=== PATIENT | female | born 1965 | race Caucasian/White ===

== ENCOUNTER 2017-11-30 19:41 | Emergency (ER) | payer BC, OTHER ==
[2017-11-30 20:23] LABS: Hematocrit 41 % (35-47); Hemoglobin 14.5 g/dl (12.0-16.0); Mean Corpuscular HGB Conc 35 g/dl (31-36); Mean Corpuscular Hemoglobin 36 pg (27-31); Mean Corpuscular Volume 101 fL (80-97); Mean Platelet Volume 6.9 um3 (7.4-10.4); Platelet Count 153 10^3/ul (150-450); Red Blood Count 4.09 10^6/ul (4.0-5.4); Red Cell Distribution Width 13 % (10.5-15); White Blood Count 8.2 10^3/ul (3.5-10.8)
[2017-11-30 20:43] LABS: EGFR Non-African American 66.9 (>60)
--- NOTE | 2017-11-30 20:48 | RAD ---
INDICATION: Shortness of breath. COMPARISON: None. TECHNIQUE: Single AP portable view of the chest was obtained. FINDINGS: Image quality is compromised due to the relative inferiority of a portable chest x-ray. The heart and mediastinum exhibit normal size and contour. The lungs are grossly clear. There is no evidence of a large pleural effusion. Visualized bones are normal for the patient's age. IMPRESSION: No radiographic evidence for acute cardiopulmonary abnormality on this portable chest x-ray.
[2017-11-30 20:49] LABS: ABS Basophils 0.1 10^3/ul (0-0.2); ABS Eosinophils 0.1 10^3/ul (0-0.6); ABS Lymphocytes 4.1 10^3/ul (1.0-4.8); ABS Monocytes 0.6 10^3/ul (0-0.8); ABS Neutrophils 3.3 10^3/ul (1.5-7.7); ABS Nucleated RBC 0 10^3/ul; Eosinophil % 1.1 % (0-6); Lymphocyte % 50.5 % (25-47); Nucleated Red Blood Cells % 0
--- NOTE | 2017-11-30 21:43 | ED ---
Skyler Harp Stephanie, scribed for Geoff Phoenix MD on 11/30/17 at 2010 . HPI Chest Pain - HPI Summary HPI Summary: The pt os a 52 y/o F presenting to the ED with c/o intermittent CP that began 2 years ago. The pt states she was at the [facility] with elevated BP and L sided CP that is described as a throbbing pain. Symptoms include nausea and lightheadedness. She states her pain radiates into her L shoulder and L UE. She denies LOC. Pt was given 324mg ASA and four doses of Nitro SL. - History of Current Complaint Chief Complaint: EDChestPainROMI Time Seen by Provider: 11/30/17 20:00 Hx Obtained From: Patient Onset/Duration: Started Hours Ago, Still Present Timing: Intermittent Current Severity: Moderate Pain Intensity: 5 Pain Scale Used: 0-10 Numeric Chest Pain Location: Left Anterior Chest Pain Radiates: Yes Chest Pain Radiates To:: Shoulder - L, Arm - L Character: Other: - throbbing Aggravating Factor(s): Nothing Alleviating Factor(s): Nothing Associated Signs and Symptoms: Positive: Lightheadedness, Nausea - Allergy/Home Medications Allergies/Adverse Reactions: Allergies Allergy/AdvReac Type Severity Reaction Status Date / Time erythromycin base Allergy Unknown Verified 11/30/17 20:30 Reaction Details lisinopril Allergy Difficulty Verified 11/30/17 20:43 Breathing Home Medications: Home Medications Metoprolol Tartrate [Metoprolol Tartrate] 100 mg PO DAILY 11/30/17 [History Confirmed 11/30/17] Nortriptyline HCl 50 mg PO BEDTIME 11/30/17 [History Confirmed 11/30/17] PMH/Surg Hx/FS Hx/Imm Hx Sensory History: Denies: Hx Legally Blind EENT History: Denies: Hx Deafness - Surgical History Surgery Procedure, Year, and Place: NONE Infectious Disease History: No Infectious Disease History: Denies: Traveled Outside the [place] in Last 30 Days - Family History Known Family History: Negative: Renal Disease - Social History Occupation: Unemployed Lives: With Family Alcohol Use: Occasionally Hx Substance Use: No Substance Use Type: Reports: None Hx Tobacco Use: Yes Smoking Status (MU): Light Every Day Tobacco Smoker Have You Smoked in the Last Year: Yes Review of Systems Negative: Fever Positive: Chest Pain Positive: Nausea Neurological: Negative - LOC, Other - lightheadedness All Other Systems Reviewed And Are Negative: Yes Physical Exam - Summary Physical Exam Summary: VITAL SIGNS: Reviewed. GENERAL: Patient is a well-developed and nourished FEMALE who is lying comfortable in the stretcher. Patient is not in any acute respiratory distress. HEAD AND FACE: No signs of trauma. No ecchymosis, hematomas or skull depressions. No sinus tenderness. EYES: PERRLA, EOMI x 2, No injected conjunctiva, no nystagmus. EARS: Hearing grossly intact. Ear canals and tympanic membranes are within normal limits. MOUTH: Oropharynx within normal limits. NECK: Supple, trachea is midline, no adenopathy, no JVD, no carotid bruit, no c- spine tenderness, neck with full ROM. CHEST: Symmetric, no tenderness at palpation LUNGS: Clear to auscultation bilaterally. No wheezing or crackles. CVS: Regular rate and rhythm, S1 and S2 present, no murmurs or gallops appreciated. ABDOMEN: Soft, non-tender. No signs of distention. No rebound no guarding, and no masses palpated. Bowel sounds are normal. EXTREMITIES: FROM in all major joints, no edema, no cyanosis or clubbing. NEURO: Alert and oriented x 3. No acute neurological deficits. Speech is normal and follows commands. SKIN: Dry and warm Triage Information Reviewed: Yes Vital Signs On Initial Exam: Initial Vitals Pulse Resp Pulse Ox 95 19 94 11/30/17 19:48 11/30/17 19:48 11/30/17 19:48 Vital Signs Reviewed: Yes Diagnostics - Vital Signs Vital Signs Temp Pulse Resp BP Pulse Ox 11/30/17 20:00 90 21 93 11/30/17 19:50 98.9 F 95 18 139/91 94 11/30/17 19:49 94 20 139/91 95 11/30/17 19:48 95 19 94 - Laboratory Lab Results: Lab Results 11/30/17 Range/Units 20:15 WBC 8.2 (3.5-10.8) 10^3/ul RBC 4.09 (4.0-5.4) 10^6/ul Hgb 14.5 (12.0-16.0) g/dl Hct 41 (35-47) % MCV 101 H (80-97) fL MCH 36 H (27-31) pg MCHC 35 (31-36) g/dl RDW 13 (10.5-15) % Plt Count 153 (150-450) 10^3/ul MPV 6.9 L (7.4-10.4) um3 Neut % (Auto) Pending Lymph % (Auto) Pending [place] % (Auto) Pending Eos % (Auto) Pending Baso % (Auto) Pending Absolute Neuts (auto) Pending Absolute Lymphs (auto) Pending Absolute Monos (auto) Pending Absolute Eos (auto) Pending Absolute Basos (auto) Pending Absolute Nucleated RBC Pending Nucleated RBC % Pending Result Diagrams: 11/30/17 20:15 11/30/17 20:15 Lab Statement: Any lab studies that have been ordered have been reviewed, and results considered in the medical decision making process. - Radiology CXR Xray Interpretation: No Acute Changes Radiology Interpretation Completed By: Radiologist - No radiographic evidence for acute cardiopulmonary abnormality on this portable chest x-ray. ED physician has reviewed this report. - EKG 20:07 Cardiac Rate: NL EKG Rhythm: Sinus Rhythm - [address] Segment: Normal Ectopy: None EKG Interpretation: No ST elevations Re-Evaluation - Re-Evaluation First Eval Re-Evaluation Time: 21:29 Change: Improved - ED physician discussed plan of discharge with the pt and the pt understands and agrees with the plan of discharge. Chest Pain Course/Dx - Course Assessment/Plan: This patient is a 52-year-old female with past medical history significant for hypertension presents to the emergency department with the chief complaint of chest pain and increased blood pressure. Patient reports that she went to the primary care physician Dr. Chopra for a follow-up on her chronic hypertension. She was at her office and she started having some chest pain and increased blood pressure therefore she was sent to the emergency room for further workup and management. She reports that she has intermittent chest pain but none at this time. EKG shows a normal sinus rhythm with no ST elevations. Blood work without any significant abnormality. The first troponin is 0.00. Chest x-ray shows no acute pathology. Patient requests to be discharged and she doesnt want a week for the second troponin. Patient reports that her symptoms have resolved and have not come back. The patient continues to be symptomatic for approximately 2 hours. Patient requests to get a referral for cardiology. The blood pressure right now is 111/89. The patient is asymptomatic she understands that we havent done the second troponin however the patient was to be discharged home. Patient was advised to return to the emergency department if she develops any other chest pain, shortness of breath, palpitations, dizziness or feeling like she is going to pass out. The patient understands and agrees. Patient is hemodynamically stable. - Chest Pain Differential Diagnosis/HQI/PQRI: Acute NC, ACS, Angina, CHF, Chest Wall, GI Disease, Lower Respiratory Infection - Diagnoses Provider Diagnoses: Atypical chest pain, Uncontrolled hypertension Discharge - Sign-Out/Discharge Documenting (check all that apply): Discharge/Admit/Transfer - Discharge - Discharge Plan Condition: Stable Disposition: HOME Patient Education Materials: Chest Pain (ED), Chronic Hypertension (ED) Referrals: Pilar Chopra MD [Primary Care Provider] - 3 Days Angela Siddiqi MD [Medical Doctor] - 4 Days Additional Instructions: Return to the ED for new or worsening symptoms. - Billing Disposition and Condition Condition: STABLE Disposition: HOME The documentation as recorded by the Skyler walker Stephanie accurately reflects the service I personally performed and the decisions made by , Geoff Phoenix MD.
[2017-11-30 22:03] VITALS: BP 129/93
== END 2017-11-30 22:14 | disposition home or self-care (01) ==
LOC: ED 19:41
DX: R07.89 Other chest pain (principal); I10 Essential (primary) hypertension; F17.200 Nicotine dependence, unspecified, uncomplicated; Z88.3 Allergy status to other anti-infective agents; Z88.8 Allergy status to other drugs, medicaments and biological substances
CPT/HCPCS: 36415; 71045; 80053; 82550; 82553; 83605; 83735; 83880; 84443; 84484; 85025; 85730; 93005; 99284

== ENCOUNTER 2019-02-07 11:40 | Observation (INO) | payer OTHER ==
[2019-02-07] MEDS ORDERED: Metoprolol Tartrate IV* 1 MG/ML 5 ML VIAL IV ONE ×2 (11:58→13:12)
[2019-02-07] MEDS ORDERED: Aspirin 81 mg CHEW TAB* 81 MG TAB.CHEW PO ONE (12:02)
[2019-02-07] MEDS ORDERED: Nitroglycerin TAB 0.4 MG* 0.4 MG TAB SL ONE (12:02)
--- NOTE | 2019-02-07 12:11 | ED ---
Hypertension - HPI Summary HPI Summary: The patient is a 53 y/o F presenting to [facility] from her PCP with a chief complaint of concern for HTN last night persisting into this morning. She reports that her BP was elevated last night with systolic of 198 mmHg, so she took double the dosage of her Losartan, which usually controls her HTN. The medication did not help, and her BP was still elevated this morning in her PCP' s office. She additionally reports that she has been experiencing HEADLEY, blurred vision, left-sided chest pressure, and difficulty walking as there is a sensation of fatigue in the left leg. She denies any fever, chills, erythema of eyes, sore throat, SOB, cough, abdominal pain, N/V, dysuria, hematuria, myalgia , edema, rash, or dizziness. She also denies any changes in medications, drinking more coffee than usual, increased stress, or drug use. She came to [facility] 3-4 months with a similar presentation, but she did not have HEADLEY or visual changes at that time. Hx of angina, HTN. No surgical hx. FHx HTN. Light every day cigarette smoker, weekly EtOH, no substance use. - History of Current Complaint Chief Complaint: EDHypertension Stated Complaint: HIGH BP, BLURRY VISION,HEADACHE PER PT Time Seen by Provider: 02/07/19 11:57 Hx Obtained From: Patient Onset/Duration: Started Hours Ago - last night, Still Present Reported Blood Pressure Prior To Arrival: 198 mmHg (systolic) Aggravating Factor(s): Nothing Alleviating Factor(s): Nothing Associated Signs & Symptoms: Other: - POSITIVE: HEADLEY, blurred vision, left-sided chest pressure, difficulty with ambulation; NEGATIVE: fever, chills, erythema of eyes, sore throat, SOB, cough, abdominal pain, N/V, dysuria, hematuria, myalgia, edema, rash, dizziness - Allergies/Home Medications Allergies/Adverse Reactions: Allergies Allergy/AdvReac Type Severity Reaction Status Date / Time erythromycin base Allergy Intermediate Hives Verified 02/07/19 11:56 lisinopril Allergy Intermediate Difficulty Verified 02/07/19 11:56 Breathing naproxen Allergy Intermediate Rash Verified 02/07/19 11:56 PMH/Surg Hx/FS Hx/Imm Hx Endocrine/Hematology History: Denies: Hx Diabetes Cardiovascular History: Reports: Hx Angina, Hx Hypertension Respiratory History: Denies: Hx Asthma, Hx Chronic Obstructive Pulmonary Disease (COPD) Sensory History: Denies: Hx Legally Blind, Hx Deafness Opthamlomology History: Denies: Hx Legally Blind - Surgical History Surgical History: None Surgery Procedure, Year, and Place: NONE Infectious Disease History: No Infectious Disease History: Denies: Traveled Outside the [place] in Last 30 Days - Family History Known Family History: Positive: Hypertension Negative: Diabetes, Renal Disease - Social History Alcohol Use: Weekly Alcohol Amount: 2 Hx Substance Use: No Substance Use Type: Reports: None Hx Tobacco Use: Yes Smoking Status (MU): Light Every Day Tobacco Smoker Type: Cigarettes Have You Smoked in the Last Year: Yes Review of Systems Negative: Fever, Chills Positive: Blurred Vision. Negative: Erythema Negative: Sore Throat Positive: Chest Pain - pressure, left-sided, intermittent, Other - elevated BP Negative: Shortness Of Breath, Cough Negative: Abdominal Pain, Vomiting, Nausea Negative: dysuria, hematuria Positive: Other - difficulty with ambulation secondary to fatigue of left leg. Negative: Myalgia, Edema Negative: Rash Neurological: Other - NEGATIVE: dizziness Positive: Headache All Other Systems Reviewed And Are Negative: Yes Physical Exam - Summary Physical Exam Summary: Constitutional: Well-developed, Well-nourished, Alert. (-) Distressed Skin: Warm, Dry HENT: Normocephalic; Atraumatic Eyes: Conjunctiva normal Neck: Musculoskeletal ROM normal neck. (-) JVD, (-) Stridor, (-) Tracheal deviation Cardio: Rhythm regular, rate normal, Heart sounds normal; Intact distal pulses; The pedal pulses are 2+ and symmetric. Radial pulses are 2+ and symmetric. (-) Murmur Pulmonary/Chest wall: Effort normal. (-) Respiratory distress, (-) Wheezes, (-) Rales Abd: Soft, (-) tenderness, (-) Distension, (-) Guarding, (-) Rebound Musculoskeletal: (-) Edema Lymph: (-) Cervical adenopathy Neuro: Alert, Oriented x3, Strength normal, Cranial nerves II-XII are grossly intact. (-) Dysmetria, (-) Nystagmus, (-) Ataxia by finger to nose testing, (-) Sensory deficit. GCS: 15. Psych: Mood and affect Normal Triage Information Reviewed: Yes Vital Signs On Initial Exam: Initial Vitals Temp Pulse Resp BP Pulse Ox 98.5 F 96 18 205/134 98 02/07/19 11:41 02/07/19 11:41 02/07/19 11:41 02/07/19 11:41 02/07/19 11:41 Vital Signs Reviewed: Yes - Karena Coma Scale Best Eye Response: 4 - Spontaneous Best Motor Response: 6 - Obeys Commands Best Verbal Response: 5 - Oriented Coma Scale Total: 15 Diagnostics - Vital Signs Vital Signs Temp Pulse Resp BP Pulse Ox 02/07/19 11:41 98.5 F 96 18 205/134 98 - Laboratory Result Diagrams: 02/08/19 05:37 02/08/19 05:37 Lab Statement: Any lab studies that have been ordered have been reviewed, and results considered in the medical decision making process. - Radiology CXR Radiology Interpretation Completed By: Radiologist Summary of Radiographic Findings: Impression: No active cardiopulmonary disease. ED physician has reviewed this report. Brain MRI Radiology Interpretation Completed By: Radiologist Summary of Radiographic Findings: Impression: 1. There is a nonenhancing lesion of the left caudate head. There are features suggestive of a chronic infarct, though the imaging appearance is somewhat indeterminate. There is no restricted diffusion to suggest acute infarct. 2. Recommend follow-up with six-month follow -up contrast enhanced MRI of the brain to establish stability of this probably static finding. 3. Mild sinus mucosal inflammatory disease, with an air-fluid level in the left maxillary sinus. In the correct clinical setting, this may represent acute sinusitis. ED physician has reviewed this report. - CT Brain CT CT Interpretation Completed By: Radiologist Summary of CT Findings: Impression: Focal hypoattenuation of the left caudate head. This may represent a subacute nonhemorrhagic infarct, though the imaging appearance is indeterminate. Recommend sideration further evaluation with contrast enhanced MRI of the head. ED physician has reviewed this report. - EKG 1203 Cardiac Rate: NL - 90 bpm EKG Rhythm: Sinus Rhythm Summary of EKG Findings: NSR at 90 bpm. No STEMI. Re-Evaluation - Re-Evaluation First Eval Re-Evaluation Time: 14:00 Change: Improved Comment: Patient is feeling slightly improved but BP is still 160s systolic. We also discussed admission. Hypertension Course/Dx - Course Course Of Treatment: Patient is a 53 y/o F with cc of continued HTN with SBP near 200 mmHg since last night despite taking Losartan, which usually controls her BP. Associated symptoms include HEADLEY, blurred vision, left-sided CP, and difficulty walking with fatigue in left leg. Upon physical exam, the patient exhibits no acute abnormalities; neuro exam is negative for deficit. In the ED course, the patient was administered NTG, ASA, and Metoprolol. As BP continued to stay elevated the patient was also given Losartan. Blood work reveals MCV of 101, MCH of 35, MPV of 6.6, BUN/Creatinine of 21.0, AST of 41, and ALT of 73. EKG at 1203 reveals NSR at 90 bpm. Chest x-ray reveals no acute cardiopulmonary disease. Brain CT Impression: Focal hypoattenuation of the left caudate head. This may represent a subacute nonhemorrhagic infarct, though the imaging appearance is indeterminate. Recommend sideration further evaluation with contrast enhanced MRI of the head. Brain MRI Impression: 1. There is a nonenhancing lesion of the left caudate head. There are features suggestive of a chronic infarct, though the imaging appearance is somewhat indeterminate. There is no restricted diffusion to suggest acute infarct. 2. Recommend follow- up with six-month follow-up contrast enhanced MRI of the brain to establish stability of this probably static finding. 3. Mild sinus mucosal inflammatory disease, with an air-fluid level in the left maxillary sinus. In the correct clinical setting, this may represent acute sinusitis. At 1404, Dr. Lang, hospitalist, accepts the patient for admission with dx of hypertensive emergency and brain lesion. Patient agrees and understands this plan. CCT of 45 minutes. - Diagnoses Provider Diagnoses: Hypertensive emergency, Brain lesion - Physician Notifications Discussed Care Of Patient With: Criss Lang - hospitalist Time Discussed With Above Provider: 14:04 Instructed by Provider To: Admit As Inpatient - I spoke with Dr. Lang concerning the patient's case, and she accepts the patient for admission. - Critical Care Time Critical Care Time: 30-74 min - 45 minutes Discharge - Sign-Out/Discharge Documenting (check all that apply): Patient Departure - Patient is accepted for admission by Dr. Lang. Patient Received Moderate/Deep Sedation with Procedure: No - Discharge Plan Condition: Stable Disposition: ADMITTED TO [facility] - Billing Disposition and Condition Condition: STABLE Disposition: Admitted to [facility] - Attestation Statements Document Initiated by Scribe: Yes Documenting Scribe: Jenn Irvin Provider For Whom Stormyibcecilio is Documenting (Include Credential): Dr. Morales Toledo MD Scribe Attestation: I, Jenn Irvin scribed for Dr. Morales Toledo MD on 02/26/19 at 0817. Scribe Documentation Reviewed: Yes Provider Attestation: The documentation as recorded by the Jenn walker accurately reflects the service I personally performed and the decisions made by me, Dr. Morales Toledo MD Status of Scribe Document: Viewed
[2019-02-07 12:15] LABS: Hematocrit 42 % (35-47); Hemoglobin 14.5 g/dL (12.0-16.0); Mean Corpuscular HGB Conc 35 g/dL (31-36); Mean Corpuscular Hemoglobin 35 pg (27-31); Mean Corpuscular Volume 101 fL (80-97); Mean Platelet Volume 6.6 fL (7.4-10.4); Platelet Count 174 10^3/uL (150-450); Red Blood Count 4.14 10^6 /uL (3.70-4.87); Red Cell Distribution Width 13 % (10-15); White Blood Count 8.4 10^3/uL (3.5-10.8)
[2019-02-07 12:27] LABS: Albumin 4.7 g/dL (3.2-5.2); Calcium 9.9 mg/dL (8.6-10.3); Potassium 4.1 mmol/L (3.5-5.0); Total Bilirubin 0.7 mg/dL (0.2-1.0)
[2019-02-07 12:33] LABS: Albumin/Globulin Ratio 1.5 (1-3); EGFR African American 89.8 (>60); EGFR Non-African American 74.3 (>60); Globulin 3.1 g/dL (2-4); Total Protein 7.8 g/dL (6.4-8.9)
[2019-02-07 13:05] LABS: ABS Basophils 0.1 10^3/ul (0-0.2); ABS Eosinophils 0.1 10^3/ul (0-0.6); ABS Monocytes 0.3 10^3/ul (0-0.8); Eosinophil % 1.2 %; Lymphocyte % 47.6 %
[2019-02-07] MEDS ORDERED: Labetalol IV* 200 MG in NS 0.9% 250 ML* 160 ML IV ONE (13:12)
[2019-02-07] MEDS ORDERED: Losartan TAB* 25 MG PO ONE (14:06)
[2019-02-07] MEDS ORDERED: Metoprolol Tartrate TAB* 25 MG PO ONE (14:06)
[2019-02-07] MEDS ORDERED: Metoprolol Tartrate TAB* 50 mg PO ONE (14:09)
[2019-02-07] MEDS ORDERED: hydrALAZINE IV* 20 MG/ML VIAL IV SLOW PU PRN (15:45)
[2019-02-07] MEDS ORDERED: Gadoteridol* (CONTRAST) 279.3 MG/ML 10 ML IV ONE (15:59)
[2019-02-07] MEDS ORDERED: Enoxaparin(*) 40 MG/0.4 ML SYR SUBCUT SCH (16:00)
--- NOTE | 2019-02-07 17:09 | HP ---
CC: Dr. Chopra * HISTORY AND PHYSICAL: DATE OF ADMISSION: 02/07/19 PROVIDER: Leslie Alaniz NP PRIMARY CARE PROVIDER: Dr. Chopra. ATTENDING PHYSICIAN WHILE IN THE HOSPITAL: Dr. Criss Lang * (dictated by Leslie Alaniz NP). CHIEF COMPLAINT: Hypertension. HISTORY OF PRESENT ILLNESS: Ms. Putnam is a 53-year-old female with a past medical history significant for hypertension, who was seen at her primary care provider's office today for elevated blood pressure and was found to have a blood pressure of 200/130 and was sent to the emergency room for further evaluation. The patient reports that she has had increased blood pressure above her baseline for the past 2 weeks. She reports that her blood pressure has been running in the 170s to 190s and today it was running in the 200s. Due to those findings, she initially went to her primary care provider for further evaluation. The patient does report that she took a double dose of losartan, a total of 100 mg last p.m. and 200 mg of metoprolol last p.m. with no improvement of her blood pressure. The patient does report that she took metoprolol 100 mg this morning and losartan 50 mg this morning. She also complains of headache and blurred vision x2 weeks. She reports heaviness in her leg with ambulation that started approximately 2 years ago, worse over the past 2 months and increased leg heaviness over the past 2 weeks to the point she does report that she has to stop when ambulating due to the heaviness in the left leg. She also does report increased sweating and tingling to her right hand. She complains of left-sided chest pain that is worse with movement of her left arm and deep breath. Nothing makes it better. She denies any radiation to the jaw, neck or arm. She denies any edema. Denies any cough, hemoptysis, or shortness of breath. No nausea or vomiting. She does report loose stools times several years that has been chronic for her. Denies any abdominal pain, hematuria, or dysuria. Denies any dysphagia. She does report left leg becomes weak with ambulation and right hand numbness. She does report blurred vision, worse in the left eye. She denies any joint or muscle aches. No rashes or lesions. She does report she did have 2 sores on her lower chin that have since resolved. Denies any psychosis or anxiety. Due to persistent hypertension, we were asked to see and evaluate her for admission. PAST MEDICAL HISTORY: Significant for hypertension, arachnoid cyst. PAST SURGICAL HISTORY: 1. x2. 2. Back surgery. 3. Hernia repair. 4. Hysterectomy, total. 5. Tonsillectomy. 6. Lymph node removed from her neck. 7. Appendectomy. HOME MEDICATIONS: Include: 1. Nortriptyline 50 mg p.o. daily. 2. Multivitamin 1 tab p.o. daily. 3. Metoprolol 100 mg p.o. b.i.d. 4. Losartan 50 mg p.o. b.i.d. 5. Tylenol 500 mg q.6 hours as needed for pain. ALLERGIES: To ERYTHROMYCIN, LISINOPRIL, and NAPROXEN. FAMILY HISTORY: Mother with a history of stroke and hypertension. Father with history of hypertension and cardiac stent. Sisters with hypertension. No reported history of diabetes. Mother with breast cancer and currently receiving chemo. Grandfather with unknown type of cancer. SOCIAL HISTORY: The patient smokes 3 quarters of pack per day since the age of 14. She does report 2 beers; she drinks 6 to 7 days a week daily. Denies any illicit drug use. 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 She is . Surrogate decision maker in the event she is unable to make her own decisions is her . She is a full code. REVIEW OF SYSTEMS: An 11-point review of systems was completed and all pertinent positives were mentioned in the HPI, otherwise were negative. PHYSICAL EXAMINATION GENERAL: At this time, Ms. Putnam is alert and oriented, resting on the stretcher in the emergency room. She is in no acute distress. VITAL SIGNS: Blood pressure 167/95, heart rate is 74, respirations are 17, O2 saturation 98%, temperature was 98.5. HEENT: Head is atraumatic, normocephalic. Eyes: EOMs are intact. Sclerae anicteric and not pale. Oral mucosa appeared to be moist. NECK: Supple. LUNGS: Clear to auscultation bilaterally. No wheezes, rales, or rhonchi. CARDIAC: S1, S2. Regular rate and rhythm. No murmurs, rubs, or gallops. ABDOMEN: Soft and nontender. Bowel sounds are present x4. EXTREMITIES: She is able to move all 4 extremities. There is no clubbing or cyanosis. There is no edema. NEUROLOGIC: She is awake, alert, oriented x3. Thought process is intact. Handgrips are equal. There is no pronator drift. There is no leg weakness, no leg drop. Push-pull is intact. Sensation is intact to all 4 extremities. Tongue is midline. Speech is clear. Lqrezw-sj-zime is intact. There are no gross focal deficits noted. SKIN: Intact. DIAGNOSTIC STUDIES/LAB DATA: WBCs are 8.4, RBCs 4.14, hemoglobin 14.5, hematocrit is 42, platelet count is 174. Sodium 139, potassium 4.1, chloride 106, carbon dioxide is 23, anion gap is 10, BUN was 17, creatinine 0.81, glucose is 96, lactic acid 1.0, calcium 9.9. ASTs were 41, ALTs were 73, alkaline phosphatase was 70. Troponin was 0.00 x2. She had a CT of the brain, radiologist's impression: Focal hypoattenuation in the left caudate head, may represent a subacute nonhemorrhagic infarct, though the imaging appearance is indeterminate, recommend further evaluation with contrast- enhanced MRI of the head. She had a chest x-ray that showed no acute cardiopulmonary disease. She had an electrocardiogram that showed sinus rhythm at a rate of 90. She does have inverted T-waves in lead III and V1 that are nonspecific, which were present on previous EKG from 11/30/17. ASSESSMENT AND PLAN: Ms. Putnam is a 53-year-old female with a past medical history significant for uncontrolled hypertension, who presented to the emergency room with hypertension from her primary care office. She will be admitted under observation for: 1. Hypertension. The patient did receive metoprolol 50 in the emergency room as well as 10 mg IV and losartan 25 mg. I will continue her on metoprolol 100 mg p.o. b.i.d. I will continue losartan 50 mg p.o. b.i.d. I will add Imdur 30 mg p.o. daily and hydralazine 5 mg IV q.6 hours as needed for systolic blood pressure greater than 180. We will have a goal reduction of her blood pressure of 25% as the patient does have longstanding history of hypertension. We could consider consultation to Nephrology for her uncontrolled hypertension and further workup for possibility of renal involvement. 2. Blurred vision. The patient does report blurred vision and headache x2 weeks. I will place her on neuro checks q.4 hours. Should her MRI of the brain show evidence of acute infarct, we will get a CTA of the head and neck and a transthoracic echocardiogram with bubble study and consultation to Neurology. 3. FEN: She can have a heart-healthy, decaf okay diet. 4. Code status: She is a full code. 5. DVT prophylaxis: I will place her on Lovenox subcu. TIME SPENT: Time spent on this admission was approximately 60 minutes, greater than half that time was spent at the bedside reviewing the events leading thus far to her hospitalization, performing physical exam, and reviewing my plan of care. I have discussed this with my attending, Dr. Criss Lang; she is in agreement with my plan. LESLIE ALANIZ, MARTINEZ [id number]/CPS #: [id number] JOSE
[2019-02-07] MEDS: Isosorbide Mononitrate ER TAB* 30 MG PO SCH (18:13)
[2019-02-07] MEDS: Metoprolol Tartrate TAB* 100 MG TAB PO SCH (20:47)
[2019-02-07] MEDS: Losartan TAB* 25 MG PO SCH (20:49)
[2019-02-07] MEDS: Acetaminophen TAB* 325 MG PO PRN (20:55)
[2019-02-07] MEDS ORDERED: Nortriptyline CAP* 25 MG PO SCH (21:00)
[2019-02-07 21:01] LABS: TSH (Thyroid Stimulating Horm) 1.81 mcIU/mL (0.34-5.60)
[2019-02-08] MEDS ORDERED: Morphine INJ* 2 MG/ML 1 ML SYRINGE (TWO MG - NEW SYRINGE VERSION) IV ONE (02:57)
[2019-02-08 06:29] LABS: BUN/Creatinine Ratio 23.7 (8-20); Calcium 9.4 mg/dL (8.6-10.3); EGFR African American 76.6 (>60); EGFR Non-African American 63.3 (>60)
[2019-02-08] MEDS ORDERED: Multivitamins/Minerals TAB PO SCH (09:00)
[2019-02-08] MEDS: Metoprolol Tartrate TAB* 100 MG TAB PO SCH (09:06)
[2019-02-08] MEDS: Losartan TAB* 25 MG PO SCH (09:07)
[2019-02-08] MEDS: Isosorbide Mononitrate ER TAB* 30 MG PO SCH (09:07)
[2019-02-08] MEDS: Acetaminophen TAB* 325 MG PO PRN ×2 (09:07→15:31)
[2019-02-08 12:40] LABS: HDL Cholesterol 39.8 mg/dL
--- NOTE | 2019-02-08 15:37 | CONS ---
CC: Dr. Pilar Chopra * NEUROLOGY CONSULTATION: DATE OF CONSULT: 02/08/19 LOCATION: She is an inpatient in room 442. REFERRING PROVIDER: Leslie Alaniz NP CHIEF COMPLAINT: Numbness, visual changes. HISTORY OF PRESENT ILLNESS: Do Putnam is a 53-year-old woman who presented to the hospital yesterday with uncontrolled hypertension. She works at [employer] and was not feeling well and they checked her blood pressure and her systolics were in excess of 200 and diastolics in excess of 120. She did not respond to initial therapy for her hypertension in the emergency room and so she was admitted. She also had complained about a headache and blurry vision for about 2 weeks. Her initial evaluation in the emergency room was notable for a CAT scan which revealed hypodensity at the head of the left caudate nucleus. This led to an MRI scan interpreted as showing a probable old infarct in the head of the left caudate. Contrast was added and it was nonenhancing. There is no prior history of stroke, but she did have an episode several months ago when she was visiting her sister in [place] of vertigo, nausea, vomiting, and ataxia. It resolved in several days and she did not seek medical attention. There is no prior history of heart disease or stroke, but just hypertension. She said she has had a CAT scan in the past and was told she had arachnoid cyst, but no history of stroke. She does get episodic migraine headaches for which she takes nortriptyline 50 mg at night, which she has been on for quite some time. Another symptom she reports is that for perhaps 6 months or longer she notes that her left leg fatigues quicker than her right. She does not get any cramps in the leg, but it just feels heavy. She has not noticed any numbness in the left leg, but sometimes she gets some numbness in her right hand. She has not noticed any numbness on her face other than once when she woke up and had some transient numbness on one side of her face. PAST MEDICAL HISTORY: Notable for hypertension. PAST SURGICAL HISTORY: sections, back surgery. MEDICATIONS: At home consist of: 1. Nortriptyline 50 mg p.o. q.h.s. 2. Metoprolol 100 mg p.o. b.i.d. 3. Losartan 50 mg p.o. b.i.d. 4. Tylenol as needed for headaches. ALLERGIES: She is allergic to ERYTHROMYCIN, LISINOPRIL, and NAPROXEN. FAMILY HISTORY: Notable for her mother having had a stroke and hypertension. Father also had hypertension. 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 She smokes a half to three quarters of a pack of cigarettes per day. She has couple of beers in the evening on some nights, but not every night. REVIEW OF SYSTEMS: Negative for heart disease or cardiac disease. She has had a cardiac evaluation in the past by Dr. Siddiqi. PHYSICAL EXAM: She is well nourished and overweight. Temperature 97.9, blood pressure 150/83, heart rate 70 and regular. Heart is in a regular rate and rhythm with a grade 2-3/6 early systolic murmur loudest at the upper right sternal border. She has bilateral carotid bruits with the left being louder than the right. The one on the right in particular may be a transmitted murmur. Neurological Exam: Pupils react from about 3 to 2 mm bilaterally. There may be a slight left afferent pupillary defect. Eye movements are normal. Visual field testing is notable for normal visual mcbride in the right eye, but a left hemianopsia out of the left eye only. Funduscopic exam was normal. Facial musculature is symmetric. Facial sensation to light touch is reported as diminished on the left, but pin discrimination is reported as symmetric. She is hard of hearing and has hearing aids. Speech is clear. Motor exam reveals normal tone and strength in the limbs proximally and distally. There is no pronator drift. There is no rest or sustention tremor. Cfzvag-sl-jjar maneuver is normal bilaterally. Finger taps are normal bilaterally. Lwtq-so-khyo maneuver is normal bilaterally. Sensory exam is notable for diminished light touch and diminished pin in the left foot relative to the right. Vibration is normal bilaterally. Romberg signs are absent. Reflexes are grade 1 at the biceps and absent at knees and ankles. Plantar response is flexor on the right and equivocal on the left. She can walk on her heels and toes with some difficulty. She cannot tandem walk. She is alert and oriented and a pretty good historian. Memory is intact and language is fluent. She has adequate attention, concentration, and fund of knowledge. DIAGNOSTIC STUDIES/LAB DATA: Laboratory data includes a CBC notable for an elevated MCV at 101. Chemistry profile is notable for elevated AST and ALT which were normal a year ago. Cholesterol this morning is 191 and LDL 76. The rest of the chemistry profile is unremarkable. CT scans and MRI scans are described above. I reviewed the images and agree with the interpretations. IMPRESSION AND PLAN: Impression is that of uncontrolled hypertension which is currently under control. She also has a history of migraines. She has a new monocular left visual field deficit, which I suspect is either ischemic optic neuropathy or branch retinal artery occlusion. She needs to see an wad lubricator. I recommend stopping the nortriptyline because of her uncontrolled hypertension and if her headaches are severe enough substituting a different migraine preventive that is blood pressure neutral. She is already on pretty significant doses of beta-blockers. Recommend checking a vitamin B12 level and a methylmalonic acid given her elevated MCV and sensory complaints. I would like to also see a carotid ultrasound before she leaves given her murmur and either transmitted murmurs or bruits. She should have an echocardiogram as an outpatient because of the murmur as well. We have discussed this with Leslie Alaniz NP, and I will explain the rationale behind the ultrasound to Do. We will see her in followup in our office in a week or two. [id number]/[facility] #: [id number] JOSE
[2019-02-08 16:49] LABS: ABS Basophils 0.1 10^3/ul (0-0.2); ABS Eosinophils 0.1 10^3/ul (0-0.6); ABS Lymphocytes 3.7 10^3/ul (1.0-4.8); ABS Monocytes 0.5 10^3/ul (0-0.8); Eosinophil % 1.2 %; Hematocrit 38 % (35-47); Hemoglobin 13.1 g/dL (12.0-16.0); Lymphocyte % 44.8 %; Mean Corpuscular HGB Conc 35 g/dL (31-36); Mean Corpuscular Hemoglobin 36 pg (27-31); Mean Corpuscular Volume 103 fL (80-97); Mean Platelet Volume 7.7 fL (7.4-10.4); Nucleated Red Blood Cells % 0.2; Platelet Count 156 10^3/uL (150-450); Red Blood Count 3.69 10^6 /uL (3.70-4.87); Red Cell Distribution Width 13 % (10-15); White Blood Count 8.3 10^3/uL (3.5-10.8)
--- NOTE | 2019-02-08 18:42 | DS ---
DISCHARGE SUMMARY: DATE OF ADMISSION: 02/07/19 DATE OF DISCHARGE: 02/08/19 PROVIDER: Leslie Alaniz NP. PRIMARY CARE PROVIDER: Dr. Chopra. ATTENDING PHYSICIAN WHILE IN THE HOSPITAL: Dr. Criss Lang * (dictated by Leslie Alaniz NP). PRIMARY DIAGNOSIS: Hypertensive urgency. STUDIES COMPLETED WHILE IN THE HOSPITAL: The patient had a CT of the brain on 02/07/19, radiologist's impression: Focal hypoattenuation of the left caudate head that may represent a subacute nonhemorrhagic infarct, though the imaging appearance indeterminate recommends further evaluation with contrast-enhanced MRI of the head. She had a chest x-ray, radiologist's impression: No active cardiopulmonary disease. She had an MRI of the brain. 1. There was a nonenhanced lesion in the left caudate head. There are features suggestive of chronic infarct. Though imaging appearance is somewhat indeterminate, there is no restricted diffusion to suggest acute infarct. 2. Recommend followup in 6 months with followup of contrast-enhanced MRI of the brain to establish stability and probability of static findings. 3. Mild sinus mucosal inflammatory disease with mild air-filled levels in the left axillary sinus may represent acute sinusitis. She had a carotid Doppler, radiologist's impression: No hemodynamically significant stenosis of the right internal carotid artery by flow velocity and no hemodynamically significant stenosis of the left internal carotid artery by flow velocity. Abnormal right vertebral artery waveform with elevated diastolic flow of uncertain etiology. DISCHARGE MEDICATIONS: [place] Medication: Imdur 30 mg p.o. daily. Continued Medications: 1. Losartan 50 mg p.o. b.i.d. 2. Multivitamin 1 cap p.o. daily. 3. Metoprolol 100 mg p.o. b.i.d. 4. Acetaminophen 500 mg p.o. q.6 hours as needed for pain. HISTORY OF PRESENT ILLNESS AND HOSPITAL COURSE: Ms. Putnam is a 53-year-old female with a past medical history significant for hypertension who was seen by her primary care provider and found to have elevated blood pressure of 200/130 and was sent to the emergency room for further evaluation. While in the emergency room, she had several medications including metoprolol IV , extra dose of her current metoprolol, she got 50 mg of metoprolol p.o. and extra 25 mg of losartan p.o., and her blood pressure remained elevated in the 170s to 180s/80s to 102. Due to these findings, she was admitted to the hospital. During her hospitalization, she did have an MRI of the brain, which showed chronic infarct to the left caudate head. She was seen in consultation by neurology, who recommended blood pressure control and discontinuation of her nortriptyline due to her severe hypertension and in the future would recommend a different migraine preventative that was blood pressure neutral. He also recommended checking a vitamin B12, which was checked and was within normal limits. The patient did have elevated MCV during this hospitalization, but does report drinking 2 beers 6 to 7 nights a week. Neurology has also recommended her to follow up in 1 to 2 weeks. The patient also did have a murmur and bilateral carotid bruits. She did have a carotid duplex that did not show any stenosis. At this time, the patient is stable for discharge home. REVIEW OF SYSTEMS: The patient denies any fever or chills. Denies any chest pain or shortness of breath. Denies any nausea, vomiting, diarrhea, or abdominal pain. She does continue to complain of blurry vision noted to the left eye. She continues to complain of mild headache, which she reports could be associated with lack of caffeine and nicotine. She denies any weakness on one side. She denies any joint or muscle aches. No urinary frequency, urgency , or pain with urination. She denies any skin ulcerations or lesions. PHYSICAL EXAMINATION: General: At this time, Ms. Putnam is alert and oriented, resting in her hospital bed. She is in no acute distress. HEENT: Head is atraumatic, normocephalic. Eyes: EOMs are intact. Sclerae anicteric and not pale. Oral mucosa is moist. Neck is supple. Lungs are clear to auscultation bilaterally. No wheezes, rales, or rhonchi. Cardiac: S1, S2. There are no rubs or gallops. She does have a systolic murmur. Abdomen is soft and nontender. Bowel sounds are present x4. Neurologic: She is awake, alert, and oriented x3. Speech is clear. Thought process is intact. Xbfrzd-ec-bkge is intact. Hand cash processor are equal. There is no pronator drift. There is no leg drift. Push-pull is intact. There is no nystagmus. Pupils are equal and reactive. She does have blurred vision in the left eye. Skin is intact. Vital Signs: Blood pressure 150/83, heart rate 69, respirations 16, O2 saturation 96% on room air, temperature was 97.9. At this time, Ms. Putnam is stable for discharge home. DISCHARGE PLAN: Ms. Putnam will be discharged home. Activity as tolerated. 1. Hypertensive urgency. I would recommend continuing on metoprolol 100 mg p.o. b.i.d. and losartan 50 mg p.o. b.i.d. I will add Imdur 30 mg p.o. daily to her current regimen to help control her blood pressure. I would recommend that she follow up with her primary care provider in 4 to 7 days for blood pressure recheck and possible need for adjustment of her medications. The patient does have history of headaches and migraines and may need to consider changing Imdur to amlodipine in the future for blood pressure control as this can contribute to increased headaches and migraines. I would also recommend followup with nephrology evaluation to see if any renal involvement with her uncontrolled hypertension. 2. Visual disturbance. The patient does complain of left eye blurriness. She was seen by neurology, who has recommended a followup with ophthalmology as soon as possible. She did scheduled appointment with Dr. Cordon, Ophthalmology, and has an appointment on 02/12/19, at 2:45 p.m. She should keep the scheduled appointment. 3. Chronic infarct. MRI does show an area of chronic infarct in the left caudate head. She was seen by neurology, who recommends blood pressure control and discontinuing nortriptyline, which has been discontinued. They have also recommended the patient follow up with ophthalmology. Her appointment is scheduled for 2:45 on 02/12/19. She should follow up with Dr. Christianson in 1 to 2 weeks for further recommendations. I did speak with Dr. Christianson about initiation of aspirin. Given that the patient has uncontrolled hypertension and an MRI does show microhemorrhages, at this time, aspirin therapy would not be recommended. Further risk stratification medications to be considered in the future. Should consider starting the patient on atorvastatin. Her LDL is at 76 with the recommended goal below 70. The may be able to optimize that through diet and exercise and should have repeat lipid profile in 4-6 weeks if remains elevated should be started on statin therapy. 4. Cardiac murmur. The patient does have a systolic murmur. I would recommend followup with cardiology for further evaluation of her systolic murmur and a transthoracic echocardiogram. 5. FEN. For diet, I would recommend a heart-healthy diet. Followup. The patient was instructed to follow up with her primary care provider in 4 to 7 days for further reevaluation of her blood pressure and possible change of her medications. She should follow up with cardiology for a transthoracic echocardiogram. She should follow up with neurology in 1 to 2 weeks for further recommendations of her chronic infarct. She should follow up with ophthalmology on 02/12/19 at 2:45 as scheduled with [facility]. The patient was instructed to return to the emergency room for any weakness on one side, slurred speech, dizziness, further changes in her vision, chest pain, shortness of breath, severe uncontrolled headache, or any other concerning symptoms. I have discussed this with my attending, Dr. Criss Lang; she is in agreement with my plan. LESLIE ALANIZ, FORM RAISER [id number]/[facility]PS #: [id number] JOSE
[2019-02-08 19:10] VITALS: BP 120/86
== END 2019-02-08 17:00 | disposition home or self-care (01) ==
LOC: ED 11:40 → MEDTELE 15:30
PROVIDERS: ADMIT Internal Medicine; ATTEND Internal Medicine
DX: I16.0 Hypertensive urgency (principal); H53.9 Unspecified visual disturbance; R07.9 Chest pain, unspecified; I20.9 Angina pectoris, unspecified; Z79.899 Other long term (current) drug therapy; Z88.1 Allergy status to other antibiotic agents; Z88.8 Allergy status to other drugs, medicaments and biological substances; G93.0 Cerebral cysts; F17.210 Nicotine dependence, cigarettes, uncomplicated; Z82.49 Family history of ischemic heart disease and other diseases of the circulatory system
CPT/HCPCS: 36415; 70450; 70553; 71045; 80048; 80053; 80061; 82607; 83605; 83921; 84443; 84484; 85025; 85652; 93005; 93880; 96372; 96374; 96375; 96376; 99285; A9270-GY; A9579; G0378; J0360; J1650; J2270; J3490